=== PATIENT | female | born 2000 | race Caucasian/White ===

== ENCOUNTER 2024-09-25 19:00 | Inpatient (IN) | payer OTHER ==
[~2024-09-25 19:00] MED LIST: Bupivacaine 0.25% HCL 30 ML VIAL ONE; Terbutaline Sulfate 1 MG/ML VIAL ONE
[2024-09-25] MEDS: Lactated Ringer's 1,000 ML IV SCH (20:10)
[2024-09-25 20:27] VITALS: BMI 54.8
[2024-09-25] MEDS ORDERED: Lidocaine 1% (PF) 30 ML VIAL SC PRN (20:58)
[2024-09-25] MEDS ORDERED: Promethazine HCl 25 MG/ML VIAL IM PRN (20:58)
[2024-09-25] MEDS ORDERED: hydrALAZINE 20 MG/ML VIAL SLOW IVP PRN (20:58)
[2024-09-25] MEDS ORDERED: Acetaminophen 500 MG TAB PO PRN (21:10)
[2024-09-25] MEDS ORDERED: Diphenoxylate HCl/Atropine Tablet PO PRN ×2 (21:10)
[2024-09-25] MEDS ORDERED: Methylergonovine 0.2 MG/ML VIAL IM PRN (21:10)
[2024-09-25] MEDS ORDERED: Misoprostol 200 MCG TAB PR PRN (21:10)
[2024-09-25] MEDS ORDERED: Carboprost 250 MCG/ML AMP IM PRN (21:10)
[2024-09-25] MEDS ORDERED: Misoprostol 100 MCG TAB VAG SCH (21:15)
[2024-09-25] MEDS ORDERED: Oxytocin 30 units/NS 500 ML 500 ML IV SCH ×2 (21:15)
[2024-09-25] MEDS ORDERED: Ibuprofen 800 MG TAB PO PRN (21:20)
[2024-09-25] MEDS ORDERED: Penicillin G Potassium 5 MILL.UNITS in Sodium Chloride 0.9% 100 ML IVPB SCH (21:30)
[2024-09-25 21:37] LABS: Hematocrit 37.9 % (34.9-44.5); Hemoglobin 11.7 g/dL (12.0-15.5); Mean Corpuscular HGB CONC 30.9 g/dL (32.0-36.0); Mean Corpuscular Hemoglobin 24.7 pg (27.0-33.0); Mean Platelet Volume 11.9 fL (7.4-10.4); Platelet Count 238 10x3/uL (150-450); RBC Distribution Width 15.6 % (11.5-14.5); Red Blood Cell (RBC) Count 4.74 10x6/uL (3.90-5.03); White Blood Cell (WBC) Count 12.3 10x3/uL (3.5-10.5)
[2024-09-25 22:03] LABS: Syphilis Antibody Nonreactive (Nonreactive); Syphilis Antibody Index 0.57 S/CO (<1.00 Non-Reactive)
[2024-09-25 22:05] LABS: Free T4 (Free Thyroxine) 0.89 ng/dL (0.70-1.48); Hep B Surf Ag - L&D Non-Reactive S/CO (NonReactive)
[2024-09-25] MEDS: Penicillin G Potassium 5 MILL.UNITS VIAL ONE (22:24)
[2024-09-25] MEDS: Misoprostol 100 MCG TAB VAG SCH (22:24)
[2024-09-26] MEDS ORDERED: Ventolin HFA Inhaler 60 PUFF INHALER INH SCH (01:00)
[2024-09-26] MEDS: Penicillin G 2.5 MILL.units 2.5 MILL.UNITS in Premix 1 BAG IVPB SCH (01:44)
[2024-09-26] MEDS ORDERED: Ventolin HFA Inhaler 60 PUFF INHALER INH PRN (03:43)
[2024-09-26] MEDS: Levothyroxine Sodium 50 MCG TAB PO SCH (05:58)
[2024-09-26] MEDS: fentaNYL 50 mcg/mL 1 mL Vial SLOW IVP SCH (10:39)
[2024-09-26] MEDS: Oxytocin 30 units/NS 500 ML 500 ML IV SCH (14:34)
[2024-09-26] MEDS: fentaNYL/Ropivacaine Epidural 100 ML ONE (17:32)
[2024-09-26] MEDS ORDERED: Naloxone HCl 0.4 mg/ml Vial IVP PRN ×2 (18:00)
[2024-09-26] MEDS ORDERED: ePHEDrine Sulfate 50 MG/10 ML VIAL SLOW IVP PRN (18:00)
[2024-09-26] MEDS ORDERED: Ondansetron PF 4 MG/2 ML Vial IVP PRN (18:00)
[2024-09-26] MEDS ORDERED: Promethazine HCl 25 MG/ML VIAL IM PRN (18:00)
[2024-09-26] MEDS ORDERED: Communication Order-Pharmacy FS SCH (18:00)
[2024-09-26] MEDS ORDERED: diphenhydrAMINE 50 MG/ML VIAL IVP PRN (18:00)
[2024-09-26] MEDS ORDERED: Moisturizing Cream (Eucerin) 113 GM JAR TOP PRN (18:00)
[2024-09-26] MEDS ORDERED: Lactated Ringer's 500 ML IV PRN (18:00)
[2024-09-26 19:29] LABS: #Basophils 0.02 10x3/uL (0.0-0.2); #Eosinophils 0.01 10x3/uL (0.0-0.5); #Monocytes 0.46 10x3/uL (0.0-1.1); #Neutrophils 11.18 10x3/uL (1.5-8.4); %Basophils 0.2 % (0.0-2.0); %Eosinophils 0.1 % (0.0-6.0); %Lymphocytes 8.5 % (18.0-47.0); %Monocytes 3.6 % (0.0-10.0); %Neutrophils 87.1 % (40.0-75.0); Hematocrit 38.4 % (34.9-44.5); Hemoglobin 11.7 g/dL (12.0-15.5); Mean Corpuscular HGB CONC 30.5 g/dL (32.0-36.0); Mean Corpuscular Hemoglobin 24.6 pg (27.0-33.0); Mean Corpuscular Volume 80.8 fL (81.6-98.3); Mean Platelet Volume 12.1 fL (7.4-10.4); Platelet Count 203 10x3/uL (150-450); RBC Distribution Width 15.7 % (11.5-14.5); Red Blood Cell (RBC) Count 4.75 10x6/uL (3.90-5.03); White Blood Cell (WBC) Count 12.8 10x3/uL (3.5-10.5)
[2024-09-26 19:42] LABS: ALT (SGPT) 16 U/L (8-55); AST (SGOT) 17 U/L (5-34); Albumin 2.7 g/dL (3.5-5.0); Alkaline Phosphatase 863 U/L (40-110); Anion Gap 15 mmol/L (10-20); BUN (Urea Nitrogen) 5 mg/dL (7.0-18.7); Bilirubin, Total 0.5 mg/dL (0.2-1.2); Calc. Creatinine Clearance 321 mL/min (70-130); Calcium 9.1 mg/dL (7.8-10.44); Carbon Dioxide 21 mmol/L (22-29); Chloride 104 mmol/L (98-107); Estimated GFR 131; Globulin 4.1 g/dL (2.4-3.5); Glucose 84 mg/dL (70-105); Potassium 4.2 mmol/L (3.5-5.1); Protein, Total 6.8 g/dL (6.0-8.3); Sodium 136 mmol/L (136-145)
[2024-09-26 22:32] LABS: Creatinine, Urine Less than 20.00 mg/dL (47-110); Protein, Urine Random Quant Less than 10 mg/dL (1-14)
[2024-09-27] MEDS: Ondansetron PF 4 MG/2 ML Vial IVP PRN (02:00)
[2024-09-27] MEDS: fentaNYL 2 mcg/Ropivacaine 0.2% Epidural 100 ML CADD EPIDURAL SCH (03:19)
[2024-09-27 12:12] LABS: Analyzer IN Cardio CS NICU; RapidComm Collect By OR NURSE; pH (Cord, venous) 7.026 (7.250-7.350)
[2024-09-27 12:14] LABS: Analyzer IN Cardio CS NICU; RapidComm Collect By OR NURSE
[2024-09-27] MEDS ORDERED: Methylergonovine 0.2 MG/ML VIAL IM PRN (12:56)
[2024-09-27] MEDS ORDERED: Simethicone Chewable 80 MG TAB PO PRN (12:56)
[2024-09-27] MEDS ORDERED: Misoprostol 200 MCG TAB PR PRN (12:56)
[2024-09-27] MEDS ORDERED: Ondansetron PF 4 MG/2 ML Vial IVP PRN ×3 (12:56→13:18)
[2024-09-27] MEDS ORDERED: hydrALAZINE 20 MG/ML VIAL SLOW IVP PRN (12:56)
[2024-09-27] MEDS ORDERED: Oxytocin 30 units/NS 500 ML 500 ML IV SCH (13:00)
[2024-09-27] MEDS ORDERED: Promethazine HCl 25 MG/ML VIAL IM PRN (13:18)
[2024-09-27] MEDS ORDERED: HYDROmorphone 0.5 MG/0.5 ML SYRINGE SLOW IVP PRN (13:18)
[2024-09-27] MEDS ORDERED: fentaNYL 50 mcg/mL 1 mL Vial SLOW IVP PRN (13:18)
[2024-09-27] MEDS ORDERED: diphenhydrAMINE 50 MG/ML VIAL IVP PRN (13:18)
[2024-09-27] MEDS ORDERED: Naloxone HCl 0.4 mg/ml Vial IV PRN (13:18)
[2024-09-27] MEDS ORDERED: Naloxone HCl 0.4 mg/ml Vial IVP PRN ×2 (13:18)
[2024-09-27] MEDS ORDERED: Moisturizing Cream (Eucerin) 113 GM JAR TOP PRN (13:18)
[2024-09-27] MEDS ORDERED: Meperidine HCl/PF 25 MG (1 mL) VIAL SLOW IVP PRN (13:18)
[2024-09-27] MEDS ORDERED: Communication Order-Pharmacy FS SCH (13:30)
[2024-09-27 13:47] LABS: INR-International Normal Ratio 0.9; PTT 30.5 sec (22.0-33.0); Prothrombin Time 10.2 sec (9.5-12.1)
[2024-09-27] MEDS: Ketorolac Tromethamine 30 MG (1 mL) VIAL IVP PRN (18:30)
[2024-09-27] MEDS: Azithromycin 500 MG in Sodium Chloride 0.9% 250 ML 250 ML IVPB SCH (20:13)
[2024-09-27] MEDS: Lidocaine 2% MPF 10 ML AMP (For Epidural Use) ONE (20:13)
[2024-09-27] MEDS: Dexamethasone 10 MG/ML VIAL ONE (20:13)
[2024-09-27] MEDS: CEFAZOLIN 2 GM in Sodium Chloride 0.9% 100 ML IVPB SCH (20:13)
[2024-09-27] MEDS: Ketorolac Tromethamine 30 MG (1 mL) VIAL ONE (20:13)
[2024-09-27] MEDS: Famotidine/PF 20 mg/2ml Vial ONE (20:14)
[2024-09-27] MEDS: Oxytocin 10 UNITS/ML VIAL ONE (20:14)
[2024-09-27] MEDS: Ondansetron PF 4 MG/2 ML Vial ONE (20:14)
[2024-09-27] MEDS: Morphine PF 10 MG/10 ML VIAL ONE (20:14)
[2024-09-27] MEDS: fentaNYL 50 mcg/mL 1 mL Vial ONE (20:14)
[2024-09-27] MEDS: Tranexamic Acid 1,000 MG/10 ML VIAL ONE (20:16)
[2024-09-27] MEDS: Ferrous Sulfate 325 MG TAB PO SCH (20:17)
[2024-09-27] MEDS: Enoxaparin 40 MG (0.4 mL) SYRINGE SC SCH (21:28)
[2024-09-28] MEDS: Boostrix 0.5 ML (Tdap) VIAL (>/=7 yrs of age) IM ONE (00:31)
[2024-09-28 05:35] LABS: Hematocrit 26.9 % (34.9-44.5); Hemoglobin 8.7 g/dL (12.0-15.5); Mean Corpuscular HGB CONC 32.3 g/dL (32.0-36.0); Mean Corpuscular Volume 80.5 fL (81.6-98.3); Mean Platelet Volume 11.9 fL (7.4-10.4); Platelet Count 223 10x3/uL (150-450); RBC Distribution Width 15.9 % (11.5-14.5); Red Blood Cell (RBC) Count 3.34 10x6/uL (3.90-5.03); White Blood Cell (WBC) Count 17.6 10x3/uL (3.5-10.5)
[2024-09-28] MEDS: Acetaminophen 325 MG TAB PO PRN ×2 (09:24→19:39)
[2024-09-28] MEDS: Prenatal Vitamin 1 TAB PO SCH (09:25)
[2024-09-28] MEDS: Ibuprofen 800 MG TAB PO SCH (13:50)
[2024-09-28] MEDS: HYDROcodone/Acetaminophen 5/325 mg Tablet PO PRN (13:51)
[2024-09-29 05:05] LABS: Hematocrit 29.2 % (34.9-44.5); Hemoglobin 9.3 g/dL (12.0-15.5); Mean Corpuscular HGB CONC 31.8 g/dL (32.0-36.0); Mean Corpuscular Hemoglobin 26.3 pg (27.0-33.0); Mean Corpuscular Volume 82.5 fL (81.6-98.3); Platelet Count 231 10x3/uL (150-450); RBC Distribution Width 16.2 % (11.5-14.5); Red Blood Cell (RBC) Count 3.54 10x6/uL (3.90-5.03); White Blood Cell (WBC) Count 13.4 10x3/uL (3.5-10.5)
[2024-09-29] MEDS: Ibuprofen 800 MG TAB PO SCH (05:24)
[2024-09-29] MEDS: Ferrous Sulfate 325 MG TAB PO SCH (08:25)
[2024-09-30 07:48] VITALS: BP 136/65; TEMP 98.2
== END 2024-09-30 11:25 | disposition home or self-care (01) | DRG 788 ==
LOC: CSHLD 19:56 → CSHPED 09-27 16:00
PROVIDERS: ADMIT Family Medicine; ATTEND Family Medicine
PROC: 10907ZC Drainage of Amniotic Fluid, Therapeutic from Products of Conception, Via Natural or Artificial Opening (ICD-10-PCS; 2024-09-26)
PROC: 10H07YZ Insertion of Other Device into Products of Conception, Via Natural or Artificial Opening (ICD-10-PCS; 2024-09-26)
PROC: 10D00Z1 Extraction of Products of Conception, Low, Open Approach (ICD-10-PCS; principal; 2024-09-27)
DX: O99.214 Obesity complicating childbirth (principal); E66.813 Obesity, class 3; Z3A.39 39 weeks gestation of pregnancy; Z37.0 Single live birth; O99.824 Streptococcus B carrier state complicating childbirth; O36.63X0 Maternal care for excessive fetal growth, third trimester, not applicable or unspecified; O99.52 Diseases of the respiratory system complicating childbirth; O99.284 Endocrine, nutritional and metabolic diseases complicating childbirth; E06.3 Autoimmune thyroiditis; J45.909 Unspecified asthma, uncomplicated; O76 Abnormality in fetal heart rate and rhythm complicating labor and delivery; O72.1 Other immediate postpartum hemorrhage
CPT/HCPCS: 36415; 51702; 80053; 82570; 82805; 84156; 84439; 84443; 85025; 85027; 85384; 85610; 85730; 86780; 86850; 86900; 86901; 87340; J0665; J1100; J1650; J1885; J2274; J2405; J2540; J2590; J3010; J3105; J3490; J7120; Q9968